=== PATIENT | female | born 1985 | race African-American/Black ===

== ENCOUNTER 2017-01-30 13:57 | Emergency (ER) | payer OTHER, MEDICAID ==
[~2017-01-30] VITALS: Ht 162.6 cm; Wt 81.6 kg
[~2017-01-30 13:57] MED LIST: BENZ100C PO; ONDA4TAB10 SL
[2017-01-30 14:06] VITALS: BP 110/63
[2017-01-30] MEDS ORDERED: BENZONATATE 100 MG CAPSULE. PO ONE (14:45)
[2017-01-30] MEDS ORDERED: predniSONE 20 MG TABLET PO ONE (14:45)
[2017-01-30] MEDS ORDERED: IPRATRPIUM/ALBUTEROL 0.5/2.5MG 3 ML NEBU. NEB ONE (14:45)
[2017-01-30] MEDS ORDERED: ONDANSETRON ODT 4 MG TAB.RAPDIS. PO ONE (14:45)
--- NOTE | 2017-01-30 14:46 | PHYS DOC ---
Past Medical History Past Medical History: Asthma Past Surgical History: Other Additional Past Surgical Histo: bilateral eyes as child Alcohol Use: None Drug Use: None Adult General Chief Complaint Chief Complaint: COUGH HPI HPI Patient is a 31 year old female with a with history of asthma and bronchitis who presents today complaining of a productive cough with nasal congestion for 4 days. Patient is also complaining of shortness of breath. She states she has tried using her inhaler with minimal relief. Patient states she would like something for the cough that can also help her sleep. She is also complaining of nausea and would like some nausea medicine. Patient denies any chance she is . Review of Systems Review of Systems Constitutional: Denies fever or chills [] Eyes: Denies change in visual acuity, redness, or eye pain [] HENT: nasal congestion Respiratory: cough and shortness of breath [] Cardiovascular: No additional information not addressed in HPI [] GI: Denies abdominal pain, nausea, vomiting, bloody stools or diarrhea [] : Denies dysuria or hematuria [] Musculoskeletal: Denies back pain or joint pain [] Integument: Denies rash or skin lesions [] Neurologic: Denies headache, focal weakness or sensory changes [] Endocrine: Denies polyuria or polydipsia [] Current Medications Current Medications Current Medications Medications (Trade) Dose Ordered Sig/[facility] Start Time Stop Time Status Last Admin Dose Admin Albuterol/ Ipratropium (Duoneb) 3 ml 1X ONCE 01/30/17 14:45 01/30/17 14:46 DC 01/30/17 14:48 3 ML Benzonatate (Tessalon Perle) 100 mg 1X ONCE 01/30/17 14:45 01/30/17 14:46 DC 01/30/17 14:56 100 MG Ondansetron HCl (Zofran Odt) 4 mg 1X ONCE 01/30/17 14:45 01/30/17 14:46 DC 01/30/17 14:55 4 MG Prednisone (Prednisone) 60 mg 1X ONCE 01/30/17 14:45 01/30/17 14:46 DC 01/30/17 14:56 60 MG Allergies Allergies Allergies Coded Allergies Type Severity Reaction Last Updated Verified No Known Drug Allergies 12/07/13 No Physical Exam Physical Exam Constitutional: Well developed, well nourished, no acute distress, non-toxic appearance. [] HENT: Normocephalic, atraumatic, bilateral external ears normal, oropharynx moist, no oral exudates, nose normal. [] Eyes: PERRLA, EOMI, conjunctiva normal, no discharge. [] Neck: Normal range of motion, no tenderness, supple, no stridor. [] Cardiovascular:Heart rate regular rhythm, no murmur [] Lungs & Thorax: Bilateral breath sounds clear to auscultation [] Abdomen: Bowel sounds normal, soft, no tenderness, no masses, no pulsatile masses. [] Skin: Warm, dry, no erythema, no rash. [] Back: No tenderness, no CVA tenderness. [] Extremities: No tenderness, no cyanosis, no clubbing, ROM intact, no edema. [] Neurologic: Alert and oriented X 3, normal motor function, normal sensory function, no focal deficits noted. [] Psychologic: Affect normal, judgement normal, mood normal. [] Current Patient Data Vital Signs Vital Signs Date Time Temp Pulse Resp B/P (MAP) Pulse Ox O2 Delivery O2 Flow Rate FiO2 01/30/17 14:06 98.4 73 18 100 Room Air 98.4 EKG EKG [] Radiology/Procedures Radiology/Procedures [] Course & Med Decision Making Course & Med Decision Making Pertinent Labs and Imaging studies reviewed. (See chart for details) This is a well-appearing 31-year-old female patient who presents to the ED with multiple complaints mostly upper respiratory infection symptoms including cough nasal congestion and shortness of breath. She has history of asthma. She is requesting cough medicine. She is also requesting medicine to help her sleep as well as nausea medicine, denies she is . Informed patient there is no indication to prescribe codeine and promethazine for her symptoms, i offered her Zofran for her nausea and she can take Tessalon Perles for the cough, prednisone and Benadryl for sleeping. F/u with PCP in one week Elenita Disclaimer Elenita Disclaimer This electronic medical record was generated, in whole or in part, using a voice recognition dictation system. Departure Departure Impression: Primary Impression: Upper respiratory infection Additional Impressions: Cough Asthma Disposition: 01 HOME, SELF-CARE Condition: STABLE Referrals: NO PCP (PCP) Follow-up with your doctor in 1-2 weeks Patient Instructions: Asthma, Adult, Cough, Adult, Upper Respiratory Infection , Adult Additional Instructions: You were seen with symptoms consistent of an upper respiratory infection as well as asthma. Use the breathing treatments as prescribed. Complete your prednisone. You can take [id number] Benadryl as needed for sleeping. You can also take [id number] cough medicines as needed. We gave a prescription for Zofran as needed for nausea. Follow-up with your doctor in 1-2 weeks. Scripts Albuterol Sulfate (Proair Respiclick) 90 Mcg Aer.pow.ba 1 PUFF IH PRN Q6HRS Y for SHORTNESS OF BREATH, #1 INHALER Prov: GRISELDA RENNER APRN 01/30/17 Prednisone (PREDNISONE) 50 Mg Tablet 1 TAB PO DAILY, #4 TAB Prov: GRISELDA RENNER APRN 01/30/17 Benzonatate (TESSALON PERLE) 100 Mg Capsule 1 CAP PO TID, #30 CAP Prov: GRISELDA RENNER APRN 01/30/17 Ondansetron (ZOFRAN ODT) 4 Mg Tab.rapdis 1 TAB SL Q8HRS, #15 TAB Prov: GRISELDA RENNER APRN 01/30/17 Problem Qualifiers Primary Impression: Upper respiratory infection URI type: unspecified URI Qualified Codes: J06.9 - Acute upper respiratory infection, unspecified Additional Impressions: Asthma Asthma severity: mild intermittent Asthma complication type: uncomplicated Qualified Codes: J45.20 - Mild intermittent asthma, uncomplicated GRISELDA RENNER APRN Jan 30, 2017 14:46
[2017-01-30] MEDS ORDERED: ONDA4TAB10 SL (15:08)
[2017-01-30] MEDS ORDERED: PRED50TA PO (15:08)
[2017-01-30] MEDS ORDERED: PROAIR RESPICL90 MCG IH (15:08)
[2017-01-30] MEDS ORDERED: BENZ100C PO (15:08)
== END 2017-01-30 15:26 | disposition home or self-care (01) ==
LOC: ER 13:57
DX: J06.9 Acute upper respiratory infection, unspecified (principal); J45.20 Mild intermittent asthma, uncomplicated
CPT/HCPCS: 94250; 94640; 99284; J7512; J7620; Q0162